=== PATIENT | female | born 1990 | race Caucasian/White ===

== ENCOUNTER 2019-07-07 14:09 | Emergency (ER) | payer OTHER ==
[2019-07-07 14:49] LABS: BASOPHILS % (AUTO) 0.4 %; EOSINOPHILS # (AUTO) 0.2 10^3/uL (0.0-0.7); EOSINOPHILS % (AUTO) 1.6 %; HGB - HEMOGLOBIN 12.8 g/dL (12.0-16.0); LYMPHOCYTES # (AUTO) 2.1 10^3/uL (1.5-3.5); MEAN PLATELET VOLUME 10.9 fL (7.9-10.8); MONOCYTES # (AUTO) 0.6 10^3/uL (0.0-1.0); MONOCYTES % (AUTO) 6.7 %; NEUTROPHILS # (AUTO) 6.2 10^3/uL (1.5-6.6); PLT - PLATELET COUNT 261 10^3/uL (130-450); RED BLOOD COUNT 4.41 10^6/uL (4.20-5.40); RED CELL DISTRIBUTION WIDTH 12.7 % (12.0-15.0); WHITE BLOOD COUNT 9.2 x10^3/uL (4.8-10.8)
--- NOTE | 2019-07-07 14:53 | ED Physician Documentation ---
PD HPI FEMALE - Stated complaint Stated Complaint: 11 WKS PREG/BLEEDING - Chief complaint Chief Complaint: Abd Pain - History obtained from History obtained from: Patient - History of Present Illness Timing - onset: Today Timing - duration: Hours (1) Timing - details: Abrupt onset Pain level max: 0 Pain level max: 0 Associated symptoms: Vaginal bleeding (today). No: Fever, Chest/shoulder pain, Abdominal pain, Back pain, Pelvic pain Contributing factors: [employer] History: G (2), P (1). No: Termination(s), Miscarriage(s), Prior vag delivery, Prior C section, Prior ectopic, Ovarian cysts, Hysterectomy, Oopeherctomy, Tubal ligation, Cervical cancer, Uterine cancer, Ovarian cancer Recently seen: Not recently seen Review of Systems Constitutional: denies: Fever, Chills Nose: denies: Rhinorrhea / runny nose, Congestion Throat: denies: Sore throat Cardiac: denies: Chest pain / pressure Respiratory: denies: Cough GI: denies: Abdominal Pain, Nausea, Vomiting, Diarrhea Skin: denies: Rash Musculoskeletal: denies: Neck pain, Back pain Neurologic: denies: Headache PD PAST MEDICAL HISTORY - Past Medical History Past Medical History: No - Past Surgical History Past Surgical History: No - Allergies Allergies/Adverse Reactions: Allergies Allergy/AdvReac Type Severity Reaction Status Date / Time amoxicillin Allergy Rash Verified 07/07/19 14:24 - Social History Does the pt smoke?: No Smoking Status: Never smoker PD ED PE NORMAL - Vitals Vital signs reviewed: Yes - General General: Alert and oriented X 3, No acute distress - HEENT HEENT: Moist mucous membranes - Neck Neck: Supple, no meningeal sign - Cardiac Cardiac: RRR, Strong equal pulses - Respiratory Respiratory: No respiratory distress, Clear bilaterally - Abdomen Abdomen: Soft, Non tender, Non distended - Back Back: No CVA TTP, No spinal TTP - Derm Derm: Warm and dry - Neuro Neuro: Alert and oriented X 3 - Psych Psych: Normal mood, Normal affect Results - Vitals Vitals: Vital Signs - 24 hr 07/07/19 07/07/19 14:24 16:12 Temperature 36.6 C Heart Rate 112 H 79 Respiratory 16 16 Rate Blood Pressure 137/116 H 129/75 O2 Saturation 98 98 Oxygen O2 Source Room air - Labs Labs: Laboratory Tests 07/07/19 07/07/1907/07/19 14:40 14:40 14:40 WBC 9.2 RBC 4.41 Hgb 12.8 Hct 38.8 MCV 88.0 MCH 29.0 MCHC 33.0 RDW 12.7 Plt Count 261 MPV 10.9 H Neut # (Auto) 6.2 Lymph # (Auto) 2.1 [place] # (Auto) 0.6 Eos # (Auto) 0.2 Baso # (Auto) 0.0 Absolute Nucleated RBC 0.00 Nucleated RBC % 0.0 Sodium 137 Potassium 3.4 L Chloride 103 Carbon Dioxide 21 Anion Gap 13.0 BUN 8 Creatinine 0.6 Estimated GFR (MDRD) 118 Glucose 96 Calcium 9.3 Total Bilirubin 0.4 AST 19 ALT 14 Alkaline Phosphatase 56 Total Protein 7.8 Albumin 4.0 Globulin 3.8 Albumin/Globulin Ratio 1.1 Lipase 29 HCG, Quant 75978.00 Urine Color Urine Clarity Urine pH Ur Specific [place] Urine Protein Urine Glucose (UA) Urine Ketones Urine Occult Blood Urine Nitrite Urine Bilirubin Urine Urobilinogen Ur Leukocyte Esterase Urine RBC Urine WBC Ur Squamous Epith Cells Urine Bacteria Ur Microscopic Review Urine Culture Comments Blood Type 07/07/19 07/07/19 14:40 14:49 WBC RBC Hgb Hct MCV MCH MCHC RDW Plt Count MPV Neut # (Auto) Lymph # (Auto) [place] # (Auto) Eos # (Auto) Baso # (Auto) Absolute Nucleated RBC Nucleated RBC % Sodium Potassium Chloride Carbon Dioxide Anion Gap BUN Creatinine Estimated GFR (MDRD) Glucose Calcium Total Bilirubin AST ALT Alkaline Phosphatase Total Protein Albumin Globulin Albumin/Globulin Ratio Lipase HCG, Quant Urine Color YELLOW Urine Clarity CLEAR Urine pH 6.5 Ur Specific [place] <=1.005 Urine Protein NEGATIVE Urine Glucose (UA) NEGATIVE Urine Ketones NEGATIVE Urine Occult Blood LARGE H Urine Nitrite NEGATIVE Urine Bilirubin NEGATIVE Urine Urobilinogen 0.2 (NORMAL) Ur Leukocyte Esterase NEGATIVE Urine RBC 6-10 H Urine WBC 0-3 Ur Squamous Epith Cells RARE Squamous Urine Bacteria Rare Ur Microscopic Review INDICATED Urine Culture Comments NOT INDICATED Blood Type A POSITIVE PD MEDICAL DECISION MAKING - ED course Complexity details: reviewed results, re-evaluated patient, considered differential, d/w patient, d/w family ED course: 29-year-old female with vaginal bleeding. She is approximately 11 weeks along. Bedside ultrasound reveals an intrauterine with good movement. heart rate of 162 bpm. Images shown to mother. [place]- rump length of 11 weeks and 3 days. No acute laboratory findings of worrisome significance at this time. Patient will follow-up with her OB for further care. Patient counseled regarding signs and symptoms for which I believe and urgent re-evaluation would be necessary. Patient with good understanding of and ag reement to plan and is comfortable going home at this time This document was made in part using voice recognition software. While efforts are made to proofread this document, sound alike and grammatical errors may occur. Departure - Departure Disposition: 01 Home, Self Care Clinical Impression: Bleeding in early Condition: Good Instructions: ED Miscarriage Poss Follow-Up: Brijesh iMller MD [Primary Care Provider] - Within 1 week Comments: Return if you worsen. Follow up with your doctor within 3 days [place] [address] [place] and your Ultrasound shows an intrauterine with approximately 11 weeks and 3 days. Your blood type is A+ Discharge Date/Time: 07/07/19 16:12
[2019-07-07 15:03] LABS: BILIRUBIN,URINE NEGATIVE (NEGATIVE); GLUCOSE, URINE (UA) NEGATIVE (NEGATIVE); KETONES,URINE (UA) NEGATIVE (NEGATIVE); LEUKOCYTE ESTERASE, URINE NEGATIVE (NEGATIVE); NITRITE,URINE NEGATIVE (NEGATIVE); OCCULT BLOOD,URINE LARGE (NEGATIVE); PH,URINE 6.5 PH (5.0-7.5); PROTEIN,URINE NEGATIVE (NEGATIVE); UROBILINOGEN,URINE 0.2 (NORMAL) E.U./dL (NORMAL)
[2019-07-07 15:15] LABS: CLARITY,URINE CLEAR (CLEAR)
[2019-07-07 15:26] LABS: BACTERIA,URINE Rare /HPF (None Seen); SQUAMOUS EPITHELIAL CELL,UR RARE Squamous (<= Few)
[2019-07-07 15:30] LABS: ALBUMIN/GLOBULIN RATIO 1.1 (1.0-2.2); BILIRUBIN,TOTAL 0.4 mg/dL (0.2-1.0); CALCIUM 9.3 mg/dL (8.5-10.3); CREATININE 0.6 mg/dL (0.4-1.0); TOTAL PROTEIN 7.8 g/dL (6.7-8.2)
[2019-07-07 16:13] VITALS: BP 129/75
== END 2019-07-07 16:12 | disposition home or self-care (01) ==
LOC: ED 14:09
DX: O20.9 Hemorrhage in early pregnancy, unspecified (principal); Z3A.11 11 weeks gestation of pregnancy
CPT/HCPCS: 36415; 80053; 81001; 81003; 83690; 84702; 85025; 86900; 86901; 87086; 99282; 99283

== ENCOUNTER 2019-12-24 13:55 | Outpatient (CLI) | payer OTHER ==
[2019-12-25 21:34] LABS: TRICHOMONAS VAGINALIS DNA NEGATIVE (NEGATIVE)
== END 2019-12-24 23:59 | disposition home or self-care (01) ==
LOC: LAB.R 13:55
PROVIDERS: ATTEND Obstetrics & Gynecology
DX: Z11.3 Encounter for screening for infections with a predominantly sexual mode of transmission (principal); E06.3 Autoimmune thyroiditis
CPT/HCPCS: 87077; 87081; 87181; 87491; 87591; 87661; 87797

== ENCOUNTER 2019-12-31 09:55 | Outpatient (CLI) | payer OTHER | END 2019-12-31 09:56 | disposition home or self-care (01) | LOC: LAB 09:55 | PROVIDERS: ATTEND Obstetrics & Gynecology | DX: O99.280 Endocrine, nutritional and metabolic diseases complicating pregnancy, unspecified trimester (principal) | CPT/HCPCS: 36415; 84436 ==

== ENCOUNTER 2020-01-19 12:47 | Inpatient (IN) | payer OTHER ==
[2020-01-19] MEDS ORDERED: OXYTOCIN/SODIUM CHLORIDE 500 ML IV PRN (15:47)
[2020-01-19] MEDS ORDERED: fentaNYL 100 MCG/2 ML VIAL IVP PRN (15:47)
[2020-01-19] MEDS ORDERED: SODIUM CHLORIDE FLUSH 0.9% 10 ML SYRINGE IVP PRN (15:47)
[2020-01-19] MEDS ORDERED: LACTATED RINGERS 1,000 ML IV SCH ×2 (16:00→21:00)
[2020-01-19] MEDS ORDERED: CLINDAMYCIN 900 MG/50 ML 50 ML IV SCH (16:00)
[2020-01-19 16:46] LABS: BASOPHILS # (AUTO) 0.1 10^3/uL (0.0-0.1); BASOPHILS % (AUTO) 0.4 %; EOSINOPHILS # (AUTO) 0.1 10^3/uL (0.0-0.7); HGB - HEMOGLOBIN 13.8 g/dL (12.0-16.0); LYMPHOCYTES % (AUTO) 15.8 %; MEAN CORPUSCULAR HEMOGLOBIN 28.5 pg (27.0-31.0); MEAN CORPUSCULAR HGB CONC 33.1 g/dL (32.0-36.0); MEAN PLATELET VOLUME 12.8 fL (7.9-10.8); MONOCYTES # (AUTO) 0.8 10^3/uL (0.0-1.0); MONOCYTES % (AUTO) 6.7 %; NEUTROPHILS # (AUTO) 9.5 10^3/uL (1.5-6.6); NEUTROPHILS % (AUTO) 75.5 %; PLT - PLATELET COUNT 240 10^3/uL (130-450); RED BLOOD COUNT 4.85 10^6/uL (4.20-5.40); WHITE BLOOD COUNT 12.6 x10^3/uL (4.8-10.8)
[2020-01-19] MEDS ORDERED: SODIUM CHLORIDE FLUSH 0.9% 10 ML SYRINGE IVP SCH (17:00)
[2020-01-19] MEDS ORDERED: LIDOCAINE-MPF 1% 30 ML VIAL ONE (19:48)
[2020-01-19] MEDS ORDERED: BUFFERED LIDOCAINE 10 ML SYRINGE SUBQ STA (20:32)
[2020-01-19] MEDS ORDERED: WITCH HAZEL/GLYCERIN 1 PAD TOP PRN (20:35)
[2020-01-19] MEDS ORDERED: oxyCODONE 5 MG TABLET PO PRN (20:35)
[2020-01-19] MEDS ORDERED: ONDANSETRON ODT 4 MG TABLET TL PRN (20:35)
[2020-01-19] MEDS ORDERED: diphenhydrAMINE 25 MG CAPSULE PO PRN (20:35)
[2020-01-19] MEDS ORDERED: HYDROCORTISONE 1% CREAM 28 GM TUBE PR PRN (20:35)
--- NOTE | 2020-01-19 20:49 | HISTORY & PHYSICAL EXAMINATION ---
Admit History - Visit Reason Visit Reason: Contractions - : 2 Parity: 1 Premature: 0 Ectopic: 0 : 0 Care: positive: [facility] Risk/History: positive: None Complications This : positive: None Smoking Status: Never smoker - Mother's Labs Mother's Blood Type: positive: A Mother's RH: positive: Positive GBS: positive: Group B Strep Positive Rubella Status: positive: Immune - Other Maternal History Other Maternal History: Indication: Patient is a 29-year-old G2, P1 female whose EDC is 19 August here 2019. This makes her 40 weeks and 0 days Chief complaint contraction history of present illness patient states that roughly midnight last night she developed contractions which have become progressively worse with time. She presented to labor and delivery early this afternoon at which time she was noted to be 2 cm she was allowed to walk and presented back after 4 cm she is admitted for labor and delivery. At this point she denies wanting to have an epidural she is aware that is a possibility she was also aware that she may use nitrous oxide. Her previous delivery was spontaneous vaginal. Patient Started her initial care at an [facility] but transferred to our group at 36 weeks EGA. Patient's 50 g Glucola was 175 her 3-hour GTT was noted to be normal. Habits patient denies use of alcohol tobacco or street addicted to drugs Medical hypothyroidism Surgical history none. Allergies are to ampicillin Current medications vitamins Synthroid as well as Tums. Social history patient is to an active duty [employer]. Physical examination well-developed well-nourished female who is complaining of intermittent contractions. HEENT pupils equal round extraocular muscles intact Heart regular rate and rhythm Lungs clear without rales or wheezes Abdomen gravid with contractions Initial examination by the nurse show to be 4 cm and -2. Impression #[id number] G2, P1 female at 40 weeks gestational in active labor #2 GBS positive Plan will admit patient will rupture when patient has descended adequately attempted vaginal delivery patient declines epidural at this time. Meds/Allgy - Allergies Allergies/Adverse Reactions: Allergies Allergy/AdvReac Type Severity Reaction Status Date / Time amoxicillin Allergy Rash Verified 07/07/19 14:24 Physical - Abdominal Exam Vital Signs: Temp Pulse Resp BP Pulse Ox 36.3 C L 83 20 128/90 H 01/19/20 13:15 01/19/20 13:15 01/19/20 13:15 01/19/20 13:15
[2020-01-19] MEDS: IBUPROFEN 800 MG TABLET PO SCH (20:58)
--- NOTE | 2020-01-19 20:58 | DELIVERY NOTE ---
Delivery Note - Infant Delivery Method Infant Delivery Method: positive: Spontaneous vaginal delivery - Presentation Presentation: positive: Vertex, SONJA - right occiput anterior - Nuchal Cord Nuchal Cord: positive: None - Anesthetic Anesthetic Type: Anesthetic: positive: Lidocaine - 1% plain Volume: positive: Other (25 ml) - Amniotic Fluid Description Amniotic Fluid Description: positive: Clear - Episiotomy Type Episiotomy Type: positive: None - Laceration Laceration: positive: 2nd degree, Perineal - Suture Suture Type: positive: Vicryl Suture Size: positive: 3-0 - : positive: Placed in direct skin contact with mother, Bulb syringe, Stimulated, Warmed sex: positive: Male : 7lb 11oz, 3495 : [birth year] - Cord Cord: positive: 3 vessels - Placenta Placenta: positive: Intact - Estimated Blood Loss Estimated Blood Loss (in cc): 200 - Post Delivery Events Post Delivery Events: positive: No post delivery events - Delivery Comments (Free Text/Narrative) Delivery Comments (Free Text/Narrative): Patient originally presented to labor and delivery this evening which time she was roughly 1/2 cm. She was allowed to walk and when she returned she was roughly 4 cm she was admitted and allowed to labor initially the head was -1 and the membranes were intact. She continued to labor spontaneously without any augmentation. She utilized nitrous oxide for labor analgesia. At 1949 she reached complete and at 1951 she started pushing. Her pushing was effective and it 2001 she delivered a live male infant with Apgars 8 and 10 over a second- degree laceration. The infant weighed 7 pounds 11.2 ounces or 3495 g. The placenta followed at 2008 and at this point her episiotomy repaired utilizing 3- 0 Vicryl in the standard fashion. The is placenta was inspected a bit noted be intact at the end the procedure sponge and needle counts were correct.
[2020-01-20] MEDS: ACETAMINOPHEN 325 MG TABLET PO SCH ×4 (01:37→23:25)
[2020-01-20] MEDS: IBUPROFEN 800 MG TABLET PO SCH ×3 (05:07→19:26)
[2020-01-20] MEDS: DOCUSATE SODIUM 100 MG CAPSULE PO SCH ×2 (08:41→21:09)
--- NOTE | 2020-01-20 18:29 | PROVIDER PROGRESS NOTE ---
Subjective - Prog Note Date Prog Note Date: 01/20/20 Prog Note Time: 18:27 - Subjective Pt reports feeling: Improved (doing well. breast feeding. baby didn't get two doses. will keep over night Taking her own levothyroxine.) Objective - Vital Signs/Intake & Output Reviewed Vital Signs: Yes Vital Signs: Vital Signs x48h Temp Pulse Resp BP Pulse Ox 01/20/20 12:42 36.8 C 88 18 126/89 H 99 Intake & Output: Intake & Output 01/17/20 01/18/20 01/19/20 01/20/20 23:59 23:59 23:59 23:59 Intake Total 300 Output Total 225 Balance 75 - Objective General Appearance: positive: No acute distress, Alert Abdomen: positive: Non-tender, Mass (U-2) Extremities: positive: Calf tenderness, Jeanmarie's sign/cords - Lab Results Fish Bones: 01/19/20 16:35 Assessment/Plan - Problem List (1) (spontaneous vaginal delivery) Impression: Progressing.
[2020-01-20] MEDS: SIMETHICONE CHEW 80 MG TABLET PO SCH (21:09)
[2020-01-21] MEDS: IBUPROFEN 800 MG TABLET PO SCH ×4 (05:27→17:48)
[2020-01-21] MEDS: SIMETHICONE CHEW 80 MG TABLET PO SCH (07:46)
[2020-01-21] MEDS ORDERED: LEVOTHYROXINE 200 MCG PO SCH (09:00)
[2020-01-21] MEDS: DOCUSATE SODIUM 100 MG CAPSULE PO SCH (11:30)
[2020-01-21] MEDS: ACETAMINOPHEN 325 MG TABLET PO SCH ×2 (11:31→16:31)
[2020-01-21 16:23] VITALS: BP 132/82
--- NOTE | 2020-01-21 16:41 | PROVIDER PROGRESS NOTE ---
Subjective - Prog Note Date Prog Note Date: 01/21/20 Prog Note Time: 16:39 - Subjective Pt reports feeling: Improved (baby to remain. breast feeding. good pain control.) Objective - Vital Signs/Intake & Output Reviewed Vital Signs: Yes Vital Signs: Vital Signs x48h Temp Pulse Resp BP Pulse Ox 01/21/20 16:22 36.6 C 73 18 132/82 H 100 Intake & Output: Intake & Output 01/18/20 01/19/20 01/20/20 01/21/20 23:59 23:59 23:59 23:59 Intake Total 350 500 Output Total 225 Balance 125 500 - Objective General Appearance: positive: No acute distress, Alert Abdomen: positive: Non-tender, Mass (u-3) Extremities: negative: Calf tenderness, Jeanmarie's sign/cords - Lab Results Fish Bones: 01/19/20 16:35 Assessment/Plan - Problem List (1) (spontaneous vaginal delivery) Impression: minimal pain needs breast feeding reviewed contraception Dischjarge to home.
--- NOTE | 2020-01-21 16:42 | Discharge Plan ---
Discharge Plan Problem Reviewed?: Yes Disposition: Home, Self Care Condition: Good Diet: Regular Activity Restrictions: No Restrictions Shower Restrictions: No Driving Restrictions: No Weight Bearing: Full Weight No Smoking: If you smoke, Please STOP! Call for help.
--- NOTE | 2020-01-21 18:07 | Labor Flowsheet ---
Labor Flowsheet Datetime Report Generated by CPN: 01/21/2020 18:07 Datetime: 01/21/2020 16:23 VITAL SIGNS NBP Sys/Tracie/Mean (mmHg): 131 : 82 : 94 Pulse: 76 LaborFlag: Labor Datetime: 01/21/2020 08:10 SpO2 (%): 100 Datetime: 01/19/2020 20:02 UTERINE ACTIVITY Monitor Mode: External Frequency (min): x1 Quality: Moderate Duration (sec): 80 Pattern: Normal: <= 5 Contractions in 10 Minutes Resting Tone (Palpate): Relaxed ASSESSMENT A Monitor Mode: Telemetry FHR Baseline Rate : 145 Variability: Moderate 6-25 bpm Accelerations: None Decelerations: Variable Category: Category II Datetime: 01/19/2020 19:56 STAGE 2 Pushing: Coached on Pushing; Urge to Push Pushing Position: Pushing with Contractions; Pushing Lithotomy Pushing Progress: Descent with Pushing; Pushing Effectively with Contractions Datetime: 01/19/2020 19:50 VAGINAL EXAM Dilatation (cm): 10.0 Effacement (%): 100 Station: 3 Exam by: Dr. Giem Datetime: 01/19/2020 19:44 Provider Notified (Name): Dr. Oconnor Communication Comments: @ bedside for del Datetime: 01/19/2020 19:29 Monitor Interventions for FHR: Ultrasound Adjusted Datetime: 01/19/2020 19:25 COMMUNICATION Communication: Provider at Bedside Datetime: 01/19/2020 19:20 Comments: Assumed care of pt recieved report from [facility] @ [facility] Patient Care Comments: Assumed care of pt recieved report from [facility] @1920 Datetime: 01/19/2020 19:07 Membrane Status: Ruptured Membranes Rupture Method: Artificial Amniotic Fluid Color: Light Meconium Amniotic Fluid Amount: Small Amniotic Fluid Odor: Normal Datetime: 01/19/2020 19:00 Stage of : Labor Notification Reason: Labor Status Datetime: 01/19/2020 18:34 PAIN Pain Scale: 10 Pain Presence: Intermittent Pain Type: Cramping Pain Location: Abdomen Pain Relief Measures: Comfort Measures Pain Coping: Declines Medication or Epidural; Other Pain Assessment Comments: Nitrous started- pt declines epidural Datetime: 01/19/2020 18:30 Contraction Comments: Not able to determine ctx. Pt in jacuzzi Datetime: 01/19/2020 18:00 FHR Baseline Changes: No Baseline Change PATIENT CARE Oxygen Method: Room Air Datetime: 01/19/2020 17:34 I/O Interventions: Up to BR Datetime: 01/19/2020 17:30 Monitor Interventions for UA: [place] Adjusted Datetime: 01/19/2020 17:00 Patient Position/Activity: Birthing Ball Datetime: 01/19/2020 16:00 Comfort Measures: Breathing/Relaxation
--- NOTE | 2020-02-05 14:26 | DISCHARGE SUMMARY ---
Physician: Jake Oconnor MD DATE OF ADMISSION: 01/19/2020 DATE OF DISCHARGE: 01/21/2020 ADMITTING DIAGNOSES 1. A 29-year-old 2, para 1 at 40 weeks. 2. Active labor. 3. Hypothyroid. DISCHARGE DIAGNOSES 1. A 29-year-old 2, para 1 at 40 weeks. 2. Active labor. 3. Hypothyroid. PROCEDURES 1. Nitrous oxide. 2. Spontaneous vaginal delivery. PRESENTING HISTORY: Patient is a 29-year-old G2, P2 female who received her initial care at [facility], but since had transferred at 36 weeks A. Her labor and course was unremarkable. Her 50-gram Glucola was elevated at 175 at 1 hour, 3-hour GTT was normal. Her STI check was noted to be negative. PAST MEDICAL HISTORY: Hypothyroidism. PAST SURGICAL HISTORY: None. ALLERGIES: AMPICILLIN. LABORATORIES: CBC on admission showed a white count of 12.6, hemoglobin was 13.8, hematocrit was 41.7, platelets were 248. HOSPITAL COURSE: The patient was admitted, allowed to labor. She utilized nitrous oxide during labor for labor analgesia. She reached complete, pushed well and delivered a live male with Apgars 8 and 9 over second-degree laceration. weighed 7 pounds 11.2 ounces. Her course was unremarkable. She advanced her diet and was discharged to home on medications including Motrin. Reviewed contraception as well as . TD: 02/05/2020 13:02 ALIYAH
== END 2020-01-21 18:06 | disposition home or self-care (01) | DRG 807 ==
LOC: WFO 12:47 → FBP 12:49 → WFO 15:46 → FBP 15:47
PROVIDERS: ADMIT Obstetrics & Gynecology; ATTEND Obstetrics & Gynecology
PROC: 10E0XZZ Delivery of Products of Conception, External Approach (ICD-10-PCS; principal; 2020-01-19)
PROC: 0KQM0ZZ Repair Perineum Muscle, Open Approach (ICD-10-PCS; 2020-01-19)
DX: O99.820 Streptococcus B carrier state complicating pregnancy (principal); Z37.0 Single live birth; O99.284 Endocrine, nutritional and metabolic diseases complicating childbirth; E03.9 Hypothyroidism, unspecified; O70.1 Second degree perineal laceration during delivery; Z3A.40 40 weeks gestation of pregnancy
CPT/HCPCS: 36415; 85025; 99213; A9270; J7120